=== PATIENT | male | born 1975 ===

== ENCOUNTER → 2016-10-25 | Outpatient (CLI) | payer OTHER ==
[2016-10-25 17:57] LABS: CHOLESTEROL/HDL RATIO 5.5; THYROID STIMULATING HORMONE 0.678 uIu/ml (0.300-4.500)
== END | disposition home or self-care (01) ==
LOC: C.LABMFLN 09:27
PROVIDERS: ATTEND Family Medicine
DX: R53.83 Other fatigue (principal)

== ENCOUNTER → 2016-11-16 | Outpatient (CLI) | payer OTHER ==
[2016-11-16 13:36] LABS: BLOOD UREA NITROGEN 12 mg/dl (7-18); BUN/CREATININE RATIO 12.1 (10-20); CALCIUM 8.9 mg/dl (8.5-10.1); CARBON DIOXIDE 25 mmol/L (21-32); CHLORIDE 110 mmol/L (98-107); CREATININE 0.99 mg/dl (0.60-1.40); GLUCOSE 110 mg/dl (70-99); POTASSIUM 3.8 mmol/L (3.5-5.1); SODIUM 144 mmol/L (136-145)
== END | disposition home or self-care (01) ==
LOC: C.LABMFLN 08:13
PROVIDERS: ATTEND Family Medicine
DX: I50.9 Heart failure, unspecified (principal)

== ENCOUNTER → 2017-06-14 | Outpatient (CLI) | payer OTHER ==
[2017-06-14 13:23] LABS: ALT/SGPT 53 U/L (12-78); BLOOD UREA NITROGEN 9 mg/dl (7-18); BUN/CREATININE RATIO 9.5 (10-20); CALCIUM 8.6 mg/dl (8.5-10.1); CARBON DIOXIDE 28 mmol/L (21-32); CHLORIDE 107 mmol/L (98-107); CREATININE 0.96 mg/dl (0.60-1.40); GLUCOSE 182 mg/dl (70-99); POTASSIUM 3.9 mmol/L (3.5-5.1); SODIUM 140 mmol/L (136-145)
[2017-06-14 13:25] LABS: ESTIMATED AVERAGE GLUCOSE 174 mg/dl; HA1C FLAG Normal (Normal)
[2017-06-14 13:26] LABS: CHOLESTEROL 167 mg/dl (0-200); CHOLESTEROL/HDL RATIO 6.4; HDL CHOLESTEROL 26 mg/dl; TRIGLYCERIDES 365 mg/dl (0-150); VERY LOW DENSITY LIPOPROT CALC 73 mg/dl
== END | disposition home or self-care (01) ==
LOC: C.LABMFLN 07:33
PROVIDERS: ATTEND Family Medicine
DX: E78.1 Pure hyperglyceridemia (principal); I51.9 Heart disease, unspecified; R73.03 Prediabetes

== ENCOUNTER → 2017-09-14 | Outpatient (CLI) | payer OTHER ==
[2017-09-14 13:06] LABS: ESTIMATED AVERAGE GLUCOSE 206 mg/dl; HA1C FLAG Normal (Normal)
== END | disposition home or self-care (01) ==
LOC: C.LABMFLN 08:05
PROVIDERS: ATTEND Family Medicine
DX: E11.9 Type 2 diabetes mellitus without complications (principal)

== ENCOUNTER → 2017-12-19 | Outpatient (CLI) | payer OTHER ==
[2017-12-19 13:16] LABS: HEMOGLOBIN A1C 6.5 % (4.5-5.6)
[2017-12-19 14:12] LABS: BLOOD UREA NITROGEN 17 mg/dl (7-18); CALCIUM 8.6 mg/dl (8.5-10.1); CARBON DIOXIDE 23 mmol/L (21-32); CREATININE 1.02 mg/dl (0.60-1.40); GLUCOSE 111 mg/dl (70-99); POTASSIUM 4.1 mmol/L (3.5-5.1); SODIUM 139 mmol/L (136-145)
== END | disposition home or self-care (01) ==
LOC: C.LABMFLN 09:44
PROVIDERS: ATTEND Family Medicine
DX: E11.9 Type 2 diabetes mellitus without complications (principal)